=== PATIENT | female | born 1990 | race African-American/Black ===

== ENCOUNTER 2017-04-25 21:47 | Emergency (ER) | payer OTHER ==
[2017-04-25 22:01] VITALS: TEMP 98.8
[2017-04-25 22:04] VITALS: BP 111/77; PULSE 86; BMI 19.3
--- NOTE | 2017-04-25 22:17 | PDOC ---
History of Present Illness - General Chief Complaint: Sore Throat Stated Complaint: EAR PAIN Time Seen by Provider: 04/25/17 22:08 History Source: Patient Exam Limitations: No Limitations - History of Present Illness Initial Comments: 04/25/17 22:24 Best Contact: Pmhx: N/A Pshx: N/A Allergies: NKDA 26-year-old female presents to the emergency department complaining of left- sided ear pain with sore throat 6 hours without fever, chills, nausea/vomiting , facial pain, rhinorrhea, nasal congestion, cough, shortness of breath, chest pain. Patient states she did not take anything for the pain and discomfort. Patient is able to eat and drink without any difficulties. Patient denies hearing loss. Past History - Past Medical History Allergies/Adverse Reactions: Allergies Allergy/AdvReac Type Severity Reaction Status Date / Time No Known Drug Allergies Allergy Verified 12/17/11 11:06 Home Medications: Ambulatory Orders Neomycin/Polymyxn/Hc [Cortisporin Otic Suspenstion -] 5 drop OS Q6HPO #30 drops 04/25/17 Asthma: No Cancer: No Cardiac Disorders: No COPD: No Diabetes: No HTN: No Seizures: No Thyroid Disease: No - Suicide/Smoking/Psychosocial Hx Smoking Status: Yes Smoking History: Current every day smoker Have you smoked in the past 12 months: No Number of Cigarettes Smoked Daily: 5 Information on smoking cessation initiated: No Hx Alcohol Use: No Drug/Substance Use Hx: No Hx Substance Use Treatment: No Review of Systems - Review of Systems Able to Perform ROS?: Yes Comments:: 04/25/17 22:25 CONSTITUTIONAL: Absent: fever, chills, diaphoresis, generalized weakness, malaise, loss of appetite HEENT: +left earache/sore throat Absent: rhinorrhea, nasal congestion,throat swelling, difficulty swallowing, mouth swelling, eye pain, visual Changes CARDIOVASCULAR: Absent: chest pain, loss of consciousness, palpitations, irregular heart rate, peripheral edema RESPIRATORY: Absent: cough, shortness of breath, dyspnea with exertion, orthopnea, wheezing, stridor, hemoptysis GASTROINTESTINAL: Absent: abdominal pain, abdominal distension, nausea, vomiting, diarrhea, constipation, melena, hematochezia GENITOURINARY: Absent: dysuria, frequency, urgency, hesitancy, hematuria, flank pain, genital pain MUSCULOSKELETAL: Absent: myalgia, arthralgia, joint swelling SKIN: Absent: rash, itching, pallor Is the patient limited Thai proficient: No *Physical Exam - Vital Signs Last Vital Signs Temp Pulse Resp BP Pulse Ox 98.8 F 86 20 111/77 99 04/25/17 21:59 04/25/17 21:59 04/25/17 21:59 04/25/17 21:59 04/25/17 21:59 - Physical Exam Comments: 04/25/17 22:25 GENERAL: Well developed, well nourished. Awake and alert. No acute distress. HEENT: Left ear canal: +erythmatous Normocephalic, atraumatic. PERRLA, EOMI. No conjunctival pallor. Sclera are non- icteric. Moist mucous membranes. Oropharynx is clear. NECK: Supple. Full ROM. No JVD. Carotid pulses 2+ and symmetric, without bruits. No thyromegaly. No lymphadenopathy. CARDIOVASCULAR: Regular rate and rhythm. No murmurs, rubs, or gallops. Distal pulses are 2+ and symmetric. PULMONARY: No evidence of respiratory distress. Lungs clear to auscultation bilaterally. No wheezing, rales or rhonchi. ABDOMINAL: Soft. Non-tender. Non-distended. No rebound or guarding. No organomegaly. Normoactive bowel sounds. SKIN: Warm and dry. Normal capillary refill. No rashes. No jaundice. *DC/Admit/Observation/Transfer Diagnosis at time of Disposition: Pharyngitis Qualifiers: Pharyngitis/tonsillitis etiology: unspecified etiology Qualified Code(s): J02.9 - Acute pharyngitis, unspecified Ruptured ear drum Qualifiers: Laterality: left Qualified Code(s): H72.92 - Unspecified perforation of tympanic membrane, left ear - Discharge Dispostion Condition at time of disposition: Stable Admit: No - Prescriptions Prescriptions: Neomycin/Polymyxn/Hc [Cortisporin Otic Suspenstion -] 5 drop OS Q6HPO #30 drops - Referrals Referrals: Sai Ferrer MD [Staff Physician] - - Patient Instructions Printed Discharge Instructions: DI for Viral Pharyngitis, DI for Tympanic Membrane Perforation-Adult Additional Instructions: Follow up with the ENT physician Tylenol alternate with motrin as needed for pain Take ear drops as prescribed/Cortisporin suspension Return to the ER for severe/persistent/worsening symptoms - Post Discharge Activity
[2017-04-25] MEDS ORDERED: IBUPROFEN 400 MG TABLET (FP) PO ONE ×2 (22:18→22:23)
== END 2017-04-25 22:46 | disposition home or self-care (01) ==
LOC: JERFT 21:47
DX: J02.9 Acute pharyngitis, unspecified (principal); H72.92 Unspecified perforation of tympanic membrane, left ear
CPT/HCPCS: 87070; 87430; 99281-25